=== PATIENT | female | born 1960 | race Two or more races ===

== ENCOUNTER 2023-03-17 13:51 | Emergency (ER) | payer OTHER ==
[~2023-03-17] VITALS: Ht 152.4 cm; Wt 68.0 kg
[2023-03-17] MEDS ORDERED: METFORMIN HCL500 M3 (14:09)
[2023-03-17 14:37] LABS: HEMATOCRIT 40.6 % (36.0-45.00); HEMOGLOBIN 13.9 g/dL (12.0-15.00); MEAN CORPUSCULAR HEMOGLOBIN 30.5 pg (27.00-32.0); MEAN CORPUSCULAR HGB CONC 34.3 g/dl (32.0-36.0); PLATELET COUNT 250 K/uL (150-450); RED BLOOD COUNT 4.56 M/uL (4.00-6.00)
[2023-03-17 16:51] LABS: ALBUMIN 3.4 gm/dL (3.4-5.0); BILIRUBIN TOTAL 0.23 mg/dL (0.3-1.2); CALCIUM 9.2 mg/dL (8.5-10.1); CREATININE SERUM 0.67 mg/dL (0.55-1.02); GFR 88.89; GLOBULINA 3.9 G/DL (2.4-3.5); POTASSIUM 3.66 mEq/L (3.5-5.1); TOTAL PROTEIN 7.3 gm/dL (6.4-8.2)
[2023-03-17] MEDS ORDERED: TUSNEL LIQUID178 ML PO (17:42)
== END 2023-03-17 17:57 | disposition home or self-care (01) ==
LOC: ER 13:51
PROVIDERS: Emergency Medicine; General Practice
DX: R07.89 Other chest pain (principal); R05.9 Cough, unspecified; E11.9 Type 2 diabetes mellitus without complications; Z79.84 Long term (current) use of oral hypoglycemic drugs; Z20.822 Contact with and (suspected) exposure to COVID-19